=== PATIENT | female | born 2000 | race Two or more races ===

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

== ENCOUNTER 2022-07-21 16:29 | Emergency (ER) | payer OTHER ==
[~2022-07-21] VITALS: Ht 162.6 cm; Wt 86.2 kg
== END 2022-07-21 20:05 | disposition home or self-care (01) ==
LOC: ER 16:29 → EMR PED 16:35
DX: J10.1 Influenza due to other identified influenza virus with other respiratory manifestations (principal); H57.10 Ocular pain, unspecified eye; Z20.822 Contact with and (suspected) exposure to COVID-19; Z91.013 Allergy to seafood

== ENCOUNTER 2024-01-25 18:43 | Emergency (ER) | payer OTHER ==
[~2024-01-25] VITALS: Ht 162.6 cm; Wt 78.9 kg
== END 2024-01-25 21:42 | disposition home or self-care (01) ==
LOC: ER 18:45
DX: J00 Acute nasopharyngitis [common cold] (principal); Z91.013 Allergy to seafood

== ENCOUNTER 2024-01-29 14:36 | Emergency (ER) | payer OTHER ==
[~2024-01-29] VITALS: Ht 162.6 cm; Wt 63.5 kg
[2024-01-29] MEDS ORDERED: CEFTRIAXONE SODIUM 1,000 MG VIAL IV STA (16:12)
[2024-01-29] MEDS ORDERED: KETOROLAC TROMETHAMINE 60 MG VIAL IM ONE (16:15)
[2024-01-30] MEDS ORDERED: AMOX1TAB5 PO (11:09)
[2024-01-30] MEDS ORDERED: PEPCID AC20 MG PO (11:09)
== END 2024-01-29 19:41 | disposition home or self-care (01) ==
LOC: ER 14:38
DX: L02.31 Cutaneous abscess of buttock (principal); Z91.013 Allergy to seafood

== ENCOUNTER 2024-01-30 09:10 | Emergency (ER) | payer OTHER ==
[~2024-01-30] VITALS: Ht 162.6 cm; Wt 79.4 kg
[2024-01-30] MEDS ORDERED: KETOROLAC TROMETHAMINE 60 MG VIAL IM ONE (10:00)
[2024-01-30] MEDS ORDERED: CEFTRIAXONE SODIUM 1,000 MG VIAL IM ONE (10:00)
[2024-01-30] MEDS ORDERED: PEPCID AC20 MG PO (11:09)
[2024-01-30] MEDS ORDERED: AMOX1TAB5 PO (11:09)
== END 2024-01-30 11:12 | disposition home or self-care (01) ==
LOC: ER 09:12
DX: L02.31 Cutaneous abscess of buttock (principal); Z91.013 Allergy to seafood

== ENCOUNTER 2024-08-28 05:33 | Emergency (ER) | payer OTHER ==
[~2024-08-28] VITALS: Ht 162.6 cm; Wt 86.2 kg
[~2024-08-28 05:33] MED LIST changes: +AMOX1TAB5 PO; +PEPCID AC20 MG PO
[2024-08-28] MEDS ORDERED: BUTALBIT-ACETA1 EACH PO (06:06)
[2024-08-28] MEDS ORDERED: KETOROLAC TROMETHAMINE 60 MG VIAL IM ONE ×2 (06:15→06:21)
[2024-08-28] MEDS ORDERED: BUTALB/ACETAMINOPHEN/CAFFEINE 1 TAB TABLET PO ONE ×2 (06:15→06:20)
[2024-08-28] MEDS ORDERED: DEXAMETHASONE SODIUM PHOSPHATE 4 MG/ML VIAL IM ONE (06:15)
[2024-08-28] MEDS ORDERED: DEXAMETHASONE SODIUM PHOSPHATE 4 MG/ML VIAL ONE (06:21)
== END 2024-08-28 06:55 | disposition home or self-care (01) ==
LOC: ER 05:35
DX: G43.909 Migraine, unspecified, not intractable, without status migrainosus (principal); Z91.013 Allergy to seafood